=== PATIENT | female | born 2005 | race Caucasian/White ===

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

== ENCOUNTER → 2023-01-11 11:10 | Outpatient (CLI) | payer MEDICAID, SELFPAY ==
[2023-01-15 09:35] LABS: Neisseria gonorrhoeae, NAA Negative (Negative)
== END ==
PROVIDERS: PCP Internal Medicine; Visit Provider Obstetrics & Gynecology
DX: Z34.91 Encounter for supervision of normal pregnancy, unspecified, first trimester (principal); Z3A.08 8 weeks gestation of pregnancy; B95.2 Enterococcus as the cause of diseases classified elsewhere
CPT/HCPCS: 87086; 87491; 87591

== ENCOUNTER 2023-02-05 13:22 | Outpatient (CLI) | payer MEDICAID, SELFPAY ==
[2023-02-05 13:26] VITALS: BMI 20.3
--- NOTE | 2023-02-05 14:13 | PC.NURSE ---
02/05/23 1345 pt presents for blood to be drawn for labs as ordered per . Venipuncture performed using butterfly access needle to pt's lt ac x 1 stick. Lab staff Louisa at chair side to witness blood draw for type and screen. Blood drawn for labs, specimens sent to lab for analysis. Site secured with 2x2 gauze and coban once needle was withdrawn.
[2023-02-05 20:35] LABS: Basophils % 0.3 % (0.1-2.0); Eosinophils % 0.7 % (0.1-12.0); Hematocrit 36.8 % (37.0-47.0); Hemoglobin 12.6 g/dL (12.2-16.2); Lymphocytes # 1.4 K/mm3 (0.7-4.5); Lymphocytes % 28.8 % (10-50); Mean Corpuscular HGB Conc 34.3 g/dL (31.8-35.4); Mean Corpuscular Hemoglobin 30.7 pg (27.0-31.2); Mean Corpuscular Volume 89.5 fl (81-99); Mean Platelet Volume 8.4 fl (7.4-10.4); Monocytes # 0.2 K/mm3 (0.1-1.0); Monocytes % 3.9 % (1.7-9.3); Neutrophils # 3.2 K/mm3 (1.8-7.8); Neutrophils % 66.4 % (37.0-80.0); Platelet Count 172 K/mm3 (142-424); Red Blood Count 4.11 M/mm3 (4.20-5.40); Red Cell Distribution Width 12.8 % (11.5-17.5); White Blood Count 4.9 K/mm3 (4.5-13.0)
[2023-02-07 06:00] LABS: HIV Screen 4th Generation wRfx Non Reactive (Non Reactive)
[2023-02-07 10:14] LABS: Rapid Plasma Reagin Ab Titer Non Reactive titer (NonRea<1:1)
[2023-02-12 09:41] LABS: Hepatitis B Surface Antigen Negative
[2023-02-12 09:42] LABS: Hepatitis C Antibody Non Reactive; Rubella Antibodies, IgG 9.79
== END 2023-02-05 13:50 | disposition home or self-care (01) ==
LOC: LAB 13:22
PROVIDERS: PCP Internal Medicine; Visit Provider Obstetrics & Gynecology
DX: Z34.91 Encounter for supervision of normal pregnancy, unspecified, first trimester (principal); Z3A.11 11 weeks gestation of pregnancy
CPT/HCPCS: 36415; 85025; 86593; 86703; 86762; 86850; 87340; 87380; G0432

== ENCOUNTER 2023-04-05 10:12 | Outpatient (CLI) | payer MEDICAID, SELFPAY ==
--- NOTE | 2023-04-05 10:13 | US_ITS ---
PROCEDURE: US OB /MATERNAL DETAIL CLINICAL INDICATION: ob complete COMPARISON: No exams were available for comparison FINDINGS: Transabdominal sonographic images of the pelvis were obtained. From her established due date she is 20 weeks 1 day.. Single viable intrauterine gestation. Cephalic initially then breech position. Placenta: Anteriorplacenta grade 1. There is an average amount of fluid. The cervix appears satisfactory. Closed and measuring 3.38 cm in length. Complete survey performed and was unremarkable on the submitted images as in PACS. No discrete anomalies identified on survey imaging by technologist. Active fetus. Three-vessel cord with satisfactory umbilical cord insertion. 4- chamber heart noted. Situs, aortic arch, LVOT, RVOT, three-vessel view appear normal. Survey of brain & ventricles Unremarkable. Cerebellum, thalamus, choroid plexus, cisterna magna appear normal. Face and neck survey unremarkable. Profile, nasion, lips and nose appeared normal. Diaphragm and chest views unremarkable. Abdomen: Both kidneys noted and unremarkable. Stomach and bladder noted and satisfactory. Spine: Survey of the spine satisfactory with no anomalies identified nor imaged. Cervical, thoracic, lower spine appear normal. Both arms and legs noted. Amniotic Fluid: Adequate. Measurements: Average ultrasound age 20weeks 0 days. Estimated due date by ultrasound age 0608/23/2023. Estimated weight 328g BPD = 19weeks 5days HC = 19weeks 6days AC = 20weeks 2days FL = 20weeks 0 days Growth Percentile= 39 Heart Rate = 140bpm Cerebellum = 19weeks 5days Humerus = 19weeks 6days HC/AC is 1.15 FL/BPD is 0.71 FL/AC is 0.21 IMPRESSION: 1. Viable fetus initially in the cephalic presentation and turned breech during the scan. 2. The fluid is within normal limits. 3. Anatomy scan appears normal. 4. biometry is consistent with the dates. Dictated by: Elfego Bird MD 04/05/2023 11:44 Elfego Bird MD in OV 04/05/2023 11:44
== END 2023-04-05 23:59 ==
LOC: RAD 10:13
PROVIDERS: PCP Internal Medicine; Visit Provider Obstetrics & Gynecology
DX: Z34.92 Encounter for supervision of normal pregnancy, unspecified, second trimester (principal); Z3A.20 20 weeks gestation of pregnancy
CPT/HCPCS: 76811

== ENCOUNTER 2023-05-14 08:15 | Outpatient (CLI) | payer MEDICAID, SELFPAY ==
[2023-05-14 08:42] LABS: Basophils % 0.1 % (0.1-2.0); Eosinophils % 0.5 % (0.1-12.0); Hematocrit 36.1 % (37.0-47.0); Lymphocytes # 1.9 K/mm3 (0.7-4.5); Lymphocytes % 29.3 % (10-50); Mean Corpuscular HGB Conc 33.2 g/dL (31.8-35.4); Mean Corpuscular Hemoglobin 32.1 pg (27.0-31.2); Mean Corpuscular Volume 96.9 fl (81-99); Mean Platelet Volume 8.5 fl (7.4-10.4); Monocytes # 0.3 K/mm3 (0.1-1.0); Monocytes % 4.8 % (1.7-9.3); Neutrophils # 4.3 K/mm3 (1.8-7.8); Neutrophils % 65.4 % (37.0-80.0); Platelet Count 180 K/mm3 (142-424); Red Blood Count 3.73 M/mm3 (4.20-5.40); Red Cell Distribution Width 13.6 % (11.5-17.5); White Blood Count 6.6 K/mm3 (4.5-13.0)
[2023-05-14 08:45] LABS: Glucose,Fasting 82 mg/dl (74-100)
[2023-05-14 10:04] LABS: Glucose 1 Hour 83 mg/dL (74-100)
== END 2023-05-14 23:59 ==
LOC: LAB 08:16
PROVIDERS: PCP Internal Medicine; Visit Provider Obstetrics & Gynecology
DX: O26.892 Other specified pregnancy related conditions, second trimester (principal); Z3A.25 25 weeks gestation of pregnancy
CPT/HCPCS: 36415; 82951; 85025

== ENCOUNTER 2023-06-10 14:11 | Emergency (ER) | payer MEDICAID, SELFPAY ==
[2023-06-10 14:15] VITALS: BP 117/77; PULSE 84; RESP 20; TEMP 36.6; O2SAT 97; BMI 26.3
[2023-06-10 14:25] VITALS: BP 117/77; PULSE 84; RESP 20; TEMP 36.6; O2SAT 97
--- NOTE | 2023-06-10 14:25 | ED_ITS ---
Discharge Plan Disposition Patient Disposition: Home, Self-Care Condition: Good Prescriptions Prescriptions: New amoxicillin-pot clavulanate 875-125 mg Tablet 1 tab PO Q12H 7 Days Qty: 14 0RF No Action sertraline 50 mg tablet 50 mg PO DAILY Classic 28 mg iron- 800 mcg tablet 1 tab PO DAILY Referrals Follow up/Referrals: Shan Cuevas MD [Primary Care Provider] - See instructions Activity Restrictions/Add. Instructions Additional Instructions/Restrictions: Neti Pot may help to clear sinus congestion Take medication as prescribed Follow up with your Family Doctor if no improvement or any worsening of symptoms Discuss with your OB before taking any medication while Clinical Impressions Clinical Impression: Sinusitis Instructions Patient Instructions: DI for Sinusitis, Sinusitis Discharge ED Provider: Odalis Angel [facility] General Stated complaint: congestion, sore throat, cough Mode of Arrival: Ambulatory Source of Information: Patient Limitations: No Limitations Time Seen by Provider: 06/10/23 14:25 Description of Symptoms (Recalled from Triage Doc. by RN): PATIENT C/O COUGH, SORE THROAT, CONGESTION, AND HEADACHE THAT STARTED LAST WEEK AND HAS GOTTEN WORSE HEENT Symptoms (Recalled from RN notes): Yes Resp Symptoms (Recalled from RN notes): Yes Skin Symptoms (Recalled from RN notes): No MS Symptoms (Recalled from RN notes): No Functional Status (Recalled from RN notes): WNL History of Present Illness Provider Complaint: Patient states that she hasnt felt well for about a week States that she has been having cough, sinus pain and pressure with sinus headache States that it has continued to get worse and it feels like it is trying to move into her chest so she came in today to get checked States that she is 29wks OB Related Data Home Medications Medication Instructions Recorded Confirmed sertraline 50 mg tablet 50 mg PO DAILY 01/11/23 06/10/23 vits no.126-ferrous fum 1 tab PO DAILY 02/15/23 06/10/23 28 mg iron-folic acid 800 mcg tablet (Classic ) Previous Rx's Medication Instructions Recorded amoxicillin 875 mg-potassium 1 tab PO Q12H 7 days #14 tabs 06/10/23 clavulanate 125 mg tablet Allergies Allergy/AdvReac Type Severity Reaction Status Date / Time No Known Allergies Allergy Verified 05/29/23 10:39 Worker's Comp Is this a Worker's Comp case?: No [facility] Disclaimer: The information contained in this section may have been updated after the patient was seen, as this information can be updated by other users. 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 atrophy Genital HSV PTSD (post-traumatic stress disorder) Anxiety Depression Surgical History History of rhinoplasty Family History Other Asthma FHx: mental illness Heart attack Hyperlipidemia Hypertension Social History Smoking Status: Former smoker tobacco type: e-cigarettes alcohol intake: never substance use type: denies use current occupational status: student Travel in the last 8 weeks: None number of children: 0 ROS Obtained: Yes All systems reviewed & no additional complaints except as documented and Yes Systems reviewed as appropriate & no additional complaints except as documented Constitutional Constitutional: Reports system reviewed and no additional complaints, except as documented, Reports as per HPI and Reports headache(s) ENT Ears, Nose, Mouth, and Throat: Reports system reviewed and no additional complaints, except as documented, Reports as per HPI, Reports headache(s), Reports sinus pain, Reports sinus pressure and Reports sore throat Cardiovascular Cardiovascular: Reports system reviewed and no additional complaints, except as documented and Reports as per HPI Respiratory Respiratory: Reports system reviewed and no additional complaints, except as documented, Reports as per HPI and Reports cough Neurologic Neurologic: Reports headache(s) Physical Exam General General appearance: alert and in no apparent distress ENT ENT exam: Present mucous membranes moist Expanded ENT Exam Nose exam: Present sinus tenderness Throat exam: Present other (PND noted) Respiratory Respiratory exam: Present normal lung sounds bilaterally; Absent respiratory distress or wheezes Cardiovascular Cardiovascular exam: Present regular rate, normal rhythm and normal heart sounds Neurological Exam Neurological exam: Present alert, oriented X3 and normal gait Medical Decision Making Ozzy Inquiry Pt receiving controlled substance: No Ozzy was queried for this patient: No Vital Signs: 06/10/23 14:15 06/10/23 14:25 Temperature 97.9 F 97.9 F Temperature Source Oral Pulse Rate 84 Pulse Rate [Right Brachial] 84 Respiratory Rate 20 20 Blood Pressure 117/77 Blood Pressure [Right Arm] 117/77 Blood Pressure Mean [Right Arm] 90 Blood Pressure Source [Right Arm] Automatic Cuff Blood Pressure Position [Right Arm] Sitting 02 Sat by Pulse Oximetry 97 Oxygen Delivery Method Room Air Medical Decision Narrative: Medication discussed with Pharmacy about being safe for use in
== END 2023-06-10 14:37 | disposition home or self-care (01) ==
PROVIDERS: Emergency Provider Nurse Practitioner; PCP Internal Medicine
DX: O99.891 Other specified diseases and conditions complicating pregnancy (principal); J01.90 Acute sinusitis, unspecified; R51.9 Headache, unspecified; R05.9 Cough, unspecified; R09.81 Nasal congestion; Z87.891 Personal history of nicotine dependence; Z3A.29 29 weeks gestation of pregnancy
CPT/HCPCS: 99212; 99214; G0463

== ENCOUNTER 2023-07-30 18:00 | Outpatient (CLI) | payer MEDICAID, SELFPAY | END 2023-07-30 23:59 | disposition home or self-care (01) | LOC: LAB.DROPOF 07-31 09:46 | PROVIDERS: PCP Nurse Practitioner Obstetrics & Gynecology; Visit Provider Nurse Practitioner Obstetrics & Gynecology | DX: O26.893 Other specified pregnancy related conditions, third trimester (principal); Z3A.36 36 weeks gestation of pregnancy | CPT/HCPCS: 86403 ==

== ENCOUNTER 2023-08-05 13:53 | Outpatient (CLI) | payer MEDICAID, SELFPAY ==
--- NOTE | 2023-08-05 13:53 | US_ITS ---
PROCEDURE: US OB BIOPHYSICAL PROFILE CLINICAL INDICATION: sga COMPARISON: US US OB /MATERNAL DETAIL from 04/05/2023 FINDINGS: Transabdominal sonographic images of the uterus were obtained. From her established due date she is 37weeks 3days. The following parameters are obtained: Viable Fetus in the cephalic presentation with and anterior placenta grade 2. Average ultrasound age is 37weeks 5days Estimated weight 3,009g, 6 lb 10 oz Cervix measures 3.3 cm. Measurements: heart Rate = 129bpm BPD = 39weeks 1day, 95 percentile HC = 39weeks 1day, 67 percentile AC = 36weeks 1day, 25 percentile FL = 36weeks 1day, 20 percentile HC/AC is 1.06 FL/BPD is 0.74 FL/AC is 0.22 39 percentile Amniotic fluid index: 10.47cm, MVP 5.94 cm Qualitative AFV:2 Breathing movements: 2 Gross Body Movements: 2 Tone: 2 Biophysical profile score: 8 Doppler evaluation of the umbilical artery: SD ratio: 2.39-3.1 Resistive index: 0.62 No obvious anomalies evident.Kidneys, profile, nasion, bladder, stomach, four-chamber heart, three-vessel cord appear normal. IMPRESSION: 1. Viable fetus in the cephalic presentation with an anterior placenta grade 2. 2. The fluid is within normal limits with an amniotic fluid index of 10.47 cm, MVP 5.94 cm. 3. Biophysical profile is 8/8 with good breathing movement and movement seen. 4. The SD ratio is normal at 2.40-3.1. 5. There has been good interval growth with the fetus currently 39th percentile. 6. Limited anatomical scan appears normal. Dictated by: Elfego Bird MD 08/05/2023 16:59 Elfego Bird MD in OV 08/05/2023 16:59
== END 2023-08-05 23:59 | disposition home or self-care (01) ==
LOC: RAD 13:53
PROVIDERS: PCP Internal Medicine; Visit Provider Nurse Practitioner Obstetrics & Gynecology
DX: O36.5930 Maternal care for other known or suspected poor fetal growth, third trimester, not applicable or unspecified (principal); Z3A.37 37 weeks gestation of pregnancy
CPT/HCPCS: 76816; 76819; 76820

== ENCOUNTER 2023-08-25 13:02 | Inpatient (IN) | payer MEDICAID, SELFPAY ==
[2023-08-25 13:06] VITALS: BMI 28.5
[2023-08-25 13:39] LABS: Microscopic, Urine URINE MICROSCOPIC (MICROSCOPIC)
[2023-08-25 13:48] LABS: Appearance,Urine CLEAR (Clear); Bilirubin,Urine Negative (Negative); Blood, Urine Negative (Negative); Color,Urine YELLOW (Yellow); Glucose,Urine (UA) Negative (Negative); Ketones,Urine Negative (Negative); Leukocyte Esterase,Urine TRACE (Negative); Nitrate,Urine Negative (Negative); Protein,Urine Negative (Negative); Specific Gravity, Urine <= 1.005 (1.005-1.030); Urobilinogen,Urine 0.2 EU/dl (0.2)
[2023-08-25 13:49] VITALS: BP 134/79; PULSE 117; RESP 22; TEMP 37.3; O2SAT 99; BMI 28.5
[2023-08-25 13:53] LABS: Basophils % 0.3 % (0.1-2.0); Eosinophils % 0.3 % (0.1-12.0); Hematocrit 35.8 % (37.0-47.0); Hemoglobin 11.9 g/dL (12.2-16.2); Lymphocytes # 2.2 K/mm3 (0.7-4.5); Lymphocytes % 21.7 % (10-50); Mean Corpuscular HGB Conc 33.3 g/dL (31.8-35.4); Mean Corpuscular Hemoglobin 29.5 pg (27.0-31.2); Mean Corpuscular Volume 88.6 fl (81-99); Mean Platelet Volume 9.7 fl (7.4-10.4); Monocytes # 0.4 K/mm3 (0.1-1.0); Monocytes % 3.7 % (1.7-9.3); Neutrophils # 7.3 K/mm3 (1.8-7.8); Platelet Count 191 K/mm3 (142-424); Red Blood Count 4.05 M/mm3 (4.20-5.40); Red Cell Distribution Width 14.3 % (11.5-17.5); White Blood Count 9.9 K/mm3 (4.5-13.0)
[2023-08-25 14:00] LABS: Barbiturates Screen,Urine Negative ng/ml (<200)
[2023-08-25 14:01] LABS: Bacteria,Urine 1+ /lpf; Benzodiazepines Screen,Urine Negative ng/ml (<200); RBC,Urine Occasional #/hpf (0-3)
[2023-08-25 14:02] LABS: Amphetamine/Metha Screen,Urine Negative ng/ml (<1000); Methadone Screen,Urine Negative ng/ml (<300)
[2023-08-25 14:03] LABS: Cannabinoid Screen,Urine Negative ng/ml (<50); Cocaine Screen,Urine Negative ng/ml (<300)
[2023-08-25 14:04] LABS: Opiate Screen,Urine Negative ng/ml (<300)
[2023-08-25 14:05] LABS: Phencyclidine Screen,Urine Negative ng/ml (<25)
[2023-08-25] MEDS: miSOPROStol 100MCG TABLET 50 MCG PO ×2 (14:07→20:09)
[2023-08-26] MEDS: miSOPROStol 100MCG TABLET 50 MCG PO (02:10)
[2023-08-26 07:52] VITALS: BP 131/85; PULSE 103; RESP 18; TEMP 37.4; O2SAT 100
--- NOTE | 2023-08-26 08:28 | EXP.OB.APHP ---
OB - H&P: HPI Antepartum History of Present Illness Chief complaint: Scheduled induction of labor, full term History of present illness: Ms. [place]ia Newsome is a 17 yo at 40w3d who presents for scheduled induction of labor, full term. She has had good care. GBS negative. History of genital HSV. She has been taking Valtrex for prophylaxis. Baby is active. History of Present Criteria for establishing EDC:: LMP confirmed by 1st trimester US care: good care Ultrasounds: normal mid trimester US Labs Blood type: A (+) positive Rubella: immune RPR/VDRL: nonreactive GBS status: negative HBsAG: negative PFSH PFSH Disclaimer: The information contained in this section may have been updated after the patient was seen, as this information can be updated by other users. Medical History (Updated 08/26/23 @ 08:34 by Ainsley Guzmán DO) Post term over 40 weeks Depression affecting Screening for genetic disease carrier status Carrier of spinal muscular atrophy Genital HSV PTSD (post-traumatic stress disorder) Anxiety Depression Surgical History History of rhinoplasty Family History Other Asthma FHx: mental illness Heart attack Hyperlipidemia Hypertension Social History (Updated 08/25/23 @ 13:59 by Lolis Warren RN) Smoking Status: Former smoker tobacco type: e-cigarettes alcohol intake: never substance use type: denies use current occupational status: employed Travel in the last 8 weeks: None number of children: 0 do you feel safe at home: Yes victim of physical abuse: No victim of emotional abuse: No victim of sexual abuse: No Review of Systems Review of Systems Review of systems:: pertinent systems reviewed and negative unless documented below Meds Home Medications and Allergies Home Medications Medication Instructions Recorded Confirmed Type sertraline 50 mg tablet 50 mg PO DAILY 01/11/23 08/25/23 History vits no.126-ferrous fum 1 tab PO DAILY 02/15/23 08/25/23 History 28 mg iron-folic acid 800 mcg tablet (Classic ) valacyclovir 500 mg tablet 500 mg PO BID #60 tabs 07/23/23 08/25/23 Rx (Valtrex) New Prescriptions to Start Prescriptions: Allergies Allergy/AdvReac Type Severity Reaction Status Date / Time No Known Allergies Allergy Verified 08/22/23 14:36 OB - H&P: Exam Physical Exam Vital signs: Temp Pulse Resp BP Pulse Ox O2 Del Method 99.1 F 117 H 22 134/79 99 Room Air 08/25/23 13:49 08/25/23 13:49 08/25/23 13:49 08/25/23 13:49 08/25/23 13:49 08/25/23 13:49 Constitutional no acute distress and cooperative Routine HEENT Exam Head: Present normocephalic and atraumatic Eye: Absent conjunctivae pink ENT: Present mucous membranes moist Routine Neck Exam Present full ROM Routine Respiratory Exam Present CTA bilaterally and normal respiratory effort Routine Cardiovascular Exam Present RRR Routine Abdominal Exam Present soft (Gravid); Absent tenderness Routine Rectal Exam Patient deferred: visual exam Routine Exam External: Present normal urethra appearance; Absent erythema, tenderness, lesions, ecchymosis or lacerations Routine Extremities Exam Present full ROM; Absent edema or calf tenderness Routine Neurological Exam Present alert, moving all extremities and normal speech Routine Psychiatric Exam Present normal affect and cooperative Detailed Labor and Delivery Exam Dilation (cm): 1 Effacement (%): 80 Cervix position: mid station: -1 Consistency: soft Membranes: artificially ruptured (amniotomy performed with amnihook at 0750, clear fluid) Amniotic fluid: clear Baseline heart rate: 120 monitor accelerations: Present monitor decelerations: None intermodal customer service variability: Moderate (11-25) OB - Results Labs Labs: Short CBC 08/25/23 Range/Units 13:35 WBC 9.9 (4.5-13.0) K/mm3 Hgb 11.9 L (12.2-16.2) g/dL Hct 35.8 L (37.0-47.0) % Plt Count 191 (142-424) K/mm3 Urine 08/25/23 Range/Units 13:10 Urine Color Yellow (Yellow) Urine Appearance Clear (Clear) Urine pH 7.0 (5.0-8.5) Ur Specific [place] <= 1.005 (1.005-1.030) Urine Protein Negative (Negative) Urine Glucose (UA) Negative (Negative) OB - A/P Antepartum (1) Post term over 40 weeks: Status: Acute (2) Depression affecting : Status: Acute (3) Carrier of spinal muscular atrophy: Status: Acute (4) Screening for genetic disease carrier status: Problem details: + 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 Induction with Cytotec followed by Pitocin GBS negative Close monitoring Anticipate
[2023-08-26] MEDS: LACTATED RINGERS 1000ML 1,000 ML 250 ML IV (08:29)
[2023-08-26] MEDS: OXYTOCIN/RINGERS LACTATE 30 UNITS/500 ML BAG IV (08:29)
[2023-08-26] MEDS: DEXTROSE 5%-LACTATED RINGERS 1,000 ML 125 ML IV (08:29)
[2023-08-26 09:07] VITALS: TEMP 37.1
--- NOTE | 2023-08-26 09:17 | P.PNANES_ITS ---
[facility] Disclaimer: The information contained in this section may have been updated after the patient was seen, as this information can be updated by other users. Medical History (Updated 08/26/23 @ 08:34 by Ainsley Guzmán DO) Post term over 40 weeks Depression affecting Screening for genetic disease carrier status Carrier of spinal muscular atrophy Genital HSV PTSD (post-traumatic stress disorder) Anxiety Depression Surgical History History of rhinoplasty Family History Other Asthma FHx: mental illness Heart attack Hyperlipidemia Hypertension Social History (Updated 08/25/23 @ 13:59 by Lolis Warren RN) Smoking Status: Former smoker alcohol intake: never substance use type: denies use current occupational status: employed Travel in the last 8 weeks: None number of children: 0 do you feel safe at home: Yes victim of physical abuse: No victim of emotional abuse: No victim of sexual abuse: No [facility] Anesthesia Checklist Patient Identification Patient Identification: Arm Band Structural Data Admitted From: Home Planned Operative Procedure/s: Labor Epidural Consent for Planned Operative Procedure(s) Verified: Yes Verified Documents: Surgical Consent and History and Physical NPO Status Verified Time NPO: 00:00 Additional verifications Anesthesia Reactions: No Airway Assessment Mallampati Score:: Class II C-Spine Mobility Assessed: Yes TMJ Mobility Assessed: Yes Neurological Assessment Level of Consciousness: Awake, Alert and Appropriate Anesthesia Plan Anesthesia Risk discussed: Yes Anesthesia Plan: Verified ASA Class: II Anesthesia Type: Epidural
[2023-08-26 11:00] VITALS: TEMP 37
[2023-08-26] MEDS: OXYTOCIN/RINGERS LACTATE 30 UNITS/500 ML BAG 40 UNITS IV (15:17)
--- NOTE | 2023-08-26 15:45 | EXP.DN ---
Delivery Note Delivery Date:: 08/26/23 Delivery Time:: 15:14 Anesthesia Type: Epidural Was labor medically induced?: No Induction method: per misoprostol protocol Gestational age (weeks): 40 delivered prior to 39 weeks?: No Gender: Female at 1 minute: 7 at 5 minutes: 9 Delivery Procedure:: Mom complete with epidural. Pushed for approximately 2 hours 16 minutes. Kiwi vacuum was applied at +2 station for FHTs in the 80's and maternal exhaustion, poor expulsive effort. Pulled through 2 contractions. One pop off. Mediolateral episiotomy performed. Head delivered spontaneously over mediolateral episiotomy in EMANI position. No nuchal cord. Anterior shoulder delivered with gentle downward pressure. Posterior shoulder and remainder of body delivered spontaneously. Baby placed on maternal abdomen, mouth and nares bulb suctioned, warmed/dried and stimulated. Delayed cord clamping was performed for 60 seconds. Cord was clamped and cut by father of baby. Cord pH was drawn. Cord blood was obtained. Placenta delivered spontaneously and intact. Mediolateral episiotom repaired with 3-0 [employer]. Hemostasis noted. Mom and baby were skin to skin and doing well after delivery. Live female baby (baby's name is Carlee) APGARs 7 (1 min), 9 (5 min) EBL 300 mL Placental Delivery Description: Spontaneous
[2023-08-26] MEDS: WITCH HAZEL 40 PADS/BOX 1 EACH TP (17:49)
[2023-08-26] MEDS: BENZOCAINE-MENTHOL SPRAY 56GM CAN TP (17:50)
[2023-08-26 21:39] VITALS: BP 120/74; PULSE 115; RESP 18; TEMP 37.4; O2SAT 98
[2023-08-27 05:27] VITALS: BP 132/78; PULSE 103; RESP 18; TEMP 37.2; O2SAT 98
[2023-08-27 06:57] LABS: Basophils % 0.1 % (0.1-2.0); Eosinophils % 0.1 % (0.1-12.0); Hematocrit 32.4 % (37.0-47.0); Hemoglobin 10.7 g/dL (12.2-16.2); Lymphocytes # 1.8 K/mm3 (0.7-4.5); Lymphocytes % 18.9 % (10-50); Mean Corpuscular HGB Conc 33.1 g/dL (31.8-35.4); Mean Corpuscular Hemoglobin 29.7 pg (27.0-31.2); Mean Corpuscular Volume 89.8 fl (81-99); Mean Platelet Volume 9.5 fl (7.4-10.4); Monocytes # 0.5 K/mm3 (0.1-1.0); Monocytes % 4.8 % (1.7-9.3); Neutrophils # 7.2 K/mm3 (1.8-7.8); Platelet Count 163 K/mm3 (142-424); Red Blood Count 3.61 M/mm3 (4.20-5.40); Red Cell Distribution Width 14.4 % (11.5-17.5); White Blood Count 9.5 K/mm3 (4.5-13.0)
[2023-08-27 09:00] VITALS: BP 130/76; PULSE 101; RESP 18; TEMP 36.9; O2SAT 98
--- NOTE | 2023-08-27 09:08 | P.PN_ITS ---
Subjective *Date: 08/27/23 *Time: 09:08 Interval history: PPD # 1 s/p VAVD Feeling well. Pain controlled. Breast feeding. Lochia is appropriate. Voiding without difficulty and passing flatus. Tolerating regular diet. Denies fever/chills, chest pain and shortness of breath. No headaches, vision changes, lightheadedness/dizziness. No lower extremity swelling. Ambulating well ad kobi. Medical Exam Vital signs and Labs for Last 24 Hours: Vital Signs Temp Pulse Resp BP Pulse Ox O2 Del Method 08/27/23 05:27 98.9 F 103 H 18 132/78 98 Room Air 08/26/23 21:39 99.4 F 115 H 18 120/74 98 Room Air 08/26/23 11:00 98.6 F Laboratory Results - last 24 hr 08/27/23 06:36: WBC 9.5, RBC 3.61 L, Hgb 10.7 L, Hct 32.4 L, MCV 89.8, MCH 29.7, MCHC 33.1, RDW 14.4, Plt Count 163, MPV 9.5, Neut % (Auto) 76.0, Lymph % (Auto) 18.9, [place] % (Auto) 4.8, Eos % (Auto) 0.1, Baso % (Auto) 0.1, Neut # (Auto) 7.2, Lymph # (Auto) 1.8, [place] # (Auto) 0.5, Eos # (Auto) 0.0, Baso # (Auto) 0.0 I & O for Labs for Last 24 Hours: Intake & Output 08/24/23 08/25/23 08/26/23 08/27/23 23:59 23:59 23:59 23:59 Weight 181 lb 15.865 oz Head: Present atraumatic and normocephalic ENT: Present mucous membranes moist Neck: Present normal inspection and full ROM Respiratory: Present CTA bilaterally and normal respiratory effort Cardiac: Present Reg Rate and Rhythm GI: Present soft; Absent tenderness Comments:: Uterine fundus firm and below umbilicus Rectal (female): Present deferred (female): Present deferred Extremities: Present full ROM; Absent edema or calf tenderness Neuro: Present alert, awake and moves all extremities Assessment and Plan *Assessment and plan (1) Status post vacuum-assisted vaginal delivery: Status: Acute Category: Medical Code(s): Z87.59 - Personal history of other complications of , childbirth and the puerperium (2) Post term over 40 weeks: Status: Acute Category: Medical Code(s): O48.0 - Post-term (3) Depression affecting : Status: Acute Category: Medical Code(s): O99.340 - Other mental disorders complicating , unspecified trimester; F32.A - Depression, unspecified (4) Screening for genetic disease carrier status: Problem Comment: + 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 Status: Acute Category: Medical Code(s): Z13.71 - Encounter for nonprocreative screening for genetic disease carrier status (5) Carrier of spinal muscular atrophy: Status: Acute Category: Medical Code(s): Z14.8 - Genetic carrier of other disease (6) Genital HSV: Status: Acute Qualifiers: Herpes simplex infection site: unspecified Qualified Code(s): A60.00 - Herpesviral infection of urogenital system, unspecified Category: Medical Code(s): A60.00 - Herpesviral infection of urogenital system, unspecified (7) Acute blood loss anemia: Status: Acute Category: Medical Code(s): D62 - Acute posthemorrhagic anemia Plan Continue routine care Encouraged increased ambulation AM Hgb 10.7 (11.9) Plan d/c home PPD # 2
[2023-08-27 16:50] VITALS: BP 121/70; PULSE 95; RESP 18; TEMP 36.9; O2SAT 98
[2023-08-27] MEDS: ACETAMINOPHEN 500MG TAB 1000 MG PO (16:55)
[2023-08-27] MEDS: SENNA 8.6MG TABLET 8.59999999999999964 MG PO (16:55)
[2023-08-28] MEDS: SERTRALINE 50MG TABLET 50 MG PO (00:04)
--- NOTE | 2023-08-28 09:09 | P.DS_ITS ---
General Admission date:: 08/25/23 Discharge date: 08/28/23 HPI HPI HPI: PPD # 2 s/p VAVD Feeling well. Breast and formula feeding. Lochia is light. Voiding without difficulty and passing flatus. Tolerating regular diet. Denies fever/chills, chest pain and shortness of breath. No headaches, vision changes, lightheadedness/dizziness. No lower extremity swelling. Ambulating well ad kobi. Hospital Course Hospital Course Hospital Course: Ms. [place] Newsome is a 17 yo at 40w3d who presents for scheduled induction of labor, full term. She has had good care. GBS negative. History of genital HSV. She has been taking Valtrex for prophylaxis. Baby is active. She underwent induction of labor with Cytotec followed by Pitocin. She had a vacuum assisted vaginal delivery on 08/26/23 at 1514. She delivered a live female baby, Federicah, weighing 7 lb 8 oz, APGARs 7 (1 min), 9 (5 min). EBL 300 mL. She did well . Pain controlled. Formula and breast feeding. Light lochia. Voiding without difficulty and passing flatus. Tolerating regular diet. Denies fever/chills, chest pain and shortness of breath. No headaches, dizziness/lightheadedness or vision changes. Vital signs stable, afebrile. Heart regular rate and rhythm. Lungs clear to auscultation. Abdomen soft, nontender. No lower extremity swelling. Ambulating well ad kobi. Normal hospital course. She was discharged to home on POD # 2 with instructions to follow-up in the office in 2 weeks or sooner if needed. Exam Data for Last 24 hours Vital signs and Labs for Last 24 Hours: Temp Pulse Resp BP Pulse Ox O2 Del Method 98.5 F 95 H 18 121/70 98 Room Air 08/27/23 16:50 08/27/23 16:50 08/27/23 16:50 08/27/23 16:50 08/27/23 16:50 08/27/23 16:50 I & O for Last 24 hours: Intake & Output 08/25/23 08/26/23 08/27/23 08/28/23 23:59 23:59 23:59 23:59 Weight 181 lb 15.865 oz Constitutional Constitutional: no acute distress and cooperative *Routine HEENT Exam Head: Present normocephalic and atraumatic Eye: Absent conjunctivae pink ENT: Present mucous membranes moist *Routine Neck Exam Neck: Present full ROM *Routine Respiratory Exam Respiratory: Present CTA bilaterally and normal respiratory effort *Routine Cardiovascular Exam Cardiovascular: Present RRR *Routine Abdominal Exam Abdominal: Present soft; Absent tenderness or distended Comments: Uterine fundus firm and below umbilicus *Routine Rectal Exam Patient deferred: visual exam *Routine Exam Patient deferred: external exam *Routine Extremities Exam Extremities: Present full ROM; Absent edema or calf tenderness *Routine Neurological Exam Neurological: Present alert, moving all extremities and normal speech Routine Psychiatric Exam Psychiatric: Present normal affect and cooperative DS: Diagnosis Discharge Diagnosis (1) Status post vacuum-assisted vaginal delivery: Status: Acute Code(s): Z87.59 - Personal history of other complications of , childbirth and the puerperium (2) Post term over 40 weeks: Status: Acute Code(s): O48.0 - Post-term (3) Depression affecting : Status: Acute Code(s): O99.340 - Other mental disorders complicating , unspecified trimester; F32.A - Depression, unspecified (4) Screening for genetic disease carrier status: Status: Acute Code(s): Z13.71 - Encounter for nonprocreative screening for genetic disease carrier status Problem details: + 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 (5) Carrier of spinal muscular atrophy: Status: Acute Code(s): Z14.8 - Genetic carrier of other disease (6) Genital HSV: Status: Acute Code(s): A60.00 - Herpesviral infection of urogenital system, unspecified Qualifiers: Herpes simplex infection site: unspecified Qualified Code(s): A60.00 - Herpesviral infection of urogenital system, unspecified (7) Acute blood loss anemia: Status: Acute Code(s): D62 - Acute posthemorrhagic anemia Meds Home Medications and Allergies Home Medications Medication Instructions Recorded Confirmed Type sertraline 50 mg tablet 50 mg PO DAILY 01/11/23 08/25/23 History vits no.126-ferrous fum 1 tab PO DAILY 02/15/23 08/25/23 History 28 mg iron-folic acid 800 mcg tablet (Classic ) New Prescriptions to Start Prescriptions: Allergies Allergy/AdvReac Type Severity Reaction Status Date / Time No Known Allergies Allergy Verified 08/22/23 14:36 Discharge Plan Disposition Patient Disposition: Home, Self-Care Condition: Good Discharge Order Discharge Orders: Discharge Order (Routine); Ordered 08/28/23 Ordered By: Ainsley Guzmán Follow up Plan Follow up with: Ainsley Guzmán DO [Staff Physician] - 09/09/23 1:30 pm Prescriptions/Medication Reconciliation: Continued sertraline 50 mg tablet 50 mg PO DAILY Classic 28 mg iron- 800 mcg tablet 1 tab PO DAILY Discontinued valacyclovir [Valtrex] 500 mg tablet 500 mg PO BID Qty: 60 1RF Problem Reconciliation Problems Reviewed?: Yes Patient Discharge Instructions ACTIVITY: Limited activity DIET: regular diet Additional Instructions: Discharge: 1. Take 800 mg Ibuprofen every 8 hours as needed for pain. You can also take 500-1000 mg of Tylenol in between doses, every 6-8 hours. 2. Nothing in the vagina for 6 weeks - no intercourse, douching or tampons. No tub baths/hot tubs or swimming pools 3. Reasons to return to L&D or call On-Call doctor - fever (greater than 100.4) - heavy vaginal bleeding (soaking through 1 pad in less than 2 hours) - vaginal discharge (malodorous and/or purulent) - severe headaches not resolved by medication or rest and leg tenderness/edema 4. depression/blues - Normal to feel anxious/overwhelmed for first 2 weeks - Talk to your doctor if: severe anxiety, trouble bonding with baby, withdrawing from other family members, thoughts of harming yourself or others Ainsley Guzmán DO [facility] [phone] Patient Instructions: Depression, Hemorrhage, DI for Labor and Delivery, Vaginal , DI for Pre-eclampsia, [facility] Post Discharge Instructions Providers Primary Care Provider: Shan Cuevas Admdesire Provider: Fadumo Blandon Attending Provider: Fadumo Blandon
[2023-08-28 09:41] VITALS: BP 124/71; PULSE 101; RESP 18; O2SAT 98
== END 2023-08-28 12:15 | disposition home or self-care (01) | DRG 807 ==
PROVIDERS: Obstetrics & Gynecology; Admitting Provider Obstetrics & Gynecology; PCP Internal Medicine; Visit Provider Obstetrics & Gynecology
DX: O98.52 Other viral diseases complicating childbirth (principal); Z37.0 Single live birth; B00.9 Herpesviral infection, unspecified; Z3A.40 40 weeks gestation of pregnancy; Z87.891 Personal history of nicotine dependence; O99.344 Other mental disorders complicating childbirth; F32.A Depression, unspecified
CPT/HCPCS: 59409; 36415; 59025; 80307; 81001; 85025; 86850; 94761; C1758; G0283; J3010; J7120

== ENCOUNTER 2023-11-06 09:53 | Emergency (ER) | payer BC, MEDICAID, SELFPAY ==
[2023-11-06 10:05] VITALS: BP 114/69; PULSE 88; RESP 20; TEMP 36.7; O2SAT 97; BMI 23.3
[2023-11-06 10:21] LABS: UTC Strep Screen (Rapid) Positive (Negative)
--- NOTE | 2023-11-06 10:22 | EXP.UTC ---
Discharge Plan Disposition Patient Disposition: Home, Self-Care Condition: Good Prescriptions Prescriptions: New amoxicillin 500 mg capsule 500 mg PO BID 10 Days Qty: 20 0RF No Action Classic 28 mg iron- 800 mcg tablet 1 tab PO DAILY sertraline 50 mg tablet 50 mg PO DAILY Qty: 90 1RF Referrals Follow up/Referrals: Shan Cuevas MD [Primary Care Provider] - See instructions Activity Restrictions/Add. Instructions Additional Instructions/Restrictions: *Monitor Temp, Over the counter Motrin or Tylenol as directed/as needed Tylenol every 4 hours and Motrin every 6 hours (as long as your family doctor has told you that you can take it) for fever or pain. and straight to ER if unable to lower temp less than 101.0 after medication given *Warm salt water gargles may help to soothe the throat *Throat Lozenges? *Warm fluids like tea with honey may help to soothe the throat? *Sleep elevated *Humidifier/Vaporizer *If you did not take Penicillin shot or was unable to, start taking antibiotic immediately and make sure that you take it for the FULL length of time although you should start to feel better in 24-48 hours *change toothbrush and toothpaste 24-48 hours after starting to take antibiotics so you do not reinfect yourself Monitor Temp. Tylenol and/or Ibuprofen as needed. ER if fever is no less than 101 despite alternating Tylenol and Ibuprofen * Encourage fluids, water, Gatorade, powerade, pedialyte if /toddler/or child *Cold fluids, popsicles and ice cream may feel good on his throat Follow up IMMEDIATELY for new or worsening symptoms or no Noticeable improvement over the next 48-72 hours. 911 for difficulty breathing or swallowing Clinical Impressions Clinical Impression: Strep throat Instructions Patient Instructions: DI for Strep Throat, Strep Throat Print Language Print Language: Samoan Discharge ED Provider: Odalis Angel [facility] [place] HPI General Stated complaint: sore throat, cough, runny nose, headache Mode of Arrival: Ambulatory Source of Information: Patient Limitations: No Limitations Time Seen by Provider: 11/06/23 10:23 Description of Symptoms (Recalled from Triage Doc. by RN): PATIENT C/O SORE THROAT, HEADACHE, RUNNY NOSE, AND SNEEZING SINCE YESTERDAY HEENT Symptoms (Recalled from RN notes): Yes Resp Symptoms (Recalled from RN notes): No Skin Symptoms (Recalled from RN notes): No MS Symptoms (Recalled from RN notes): No Functional Status (Recalled from RN notes): WNL History of Present Illness Provider Complaint: Patient states that she has been having sore throat, headache, and runny nose since yesterday States that she works at a daycare and strep throat has been going around and she thinks she may have it now Related Data Home Medications ?Medication ?Instructions ?Recorded ?Confirmed vits no.126-ferrous fum 1 tab PO DAILY 02/15/23 11/04/23 28 mg iron-folic acid 800 mcg tablet (Classic ) Previous Rx's ?Medication ?Instructions ?Recorded sertraline 50 mg tablet 50 mg PO DAILY #90 tabs 11/01/23 amoxicillin 500 mg capsule 500 mg PO BID 10 days #20 caps 11/06/23 Allergies Allergy/AdvReac Type Severity Reaction Status Date / Time No Known Allergies Allergy Verified 11/04/23 14:12 Worker's Comp Is this a Worker's Comp case?: No [facility] Disclaimer: The information contained in this section may have been updated after the patient was seen, as this information can be updated by other users. Medical History (Updated 11/06/23 @ 10:27 by Odalis Angel APRN) Chlamydia infection Anogenital HSV infection Acute blood loss anemia Depression affecting Carrier of spinal muscular atrophy Genital HSV PTSD (post-traumatic stress disorder) Anxiety Depression Surgical History History of rhinoplasty Family History Other Asthma FHx: mental illness Heart attack Hyperlipidemia Hypertension Social History Smoking Status: Former smoker alcohol intake: never substance use type: denies use current occupational status: employed Travel in the last 8 weeks: None number of children: 0 do you feel safe at home: Yes victim of physical abuse: No victim of emotional abuse: No victim of sexual abuse: No ROS Obtained: Yes All systems reviewed & no additional complaints except as documented and Yes Systems reviewed as appropriate & no additional complaints except as documented Constitutional Constitutional: Reports system reviewed and no additional complaints, except as documented, Reports as per HPI and Reports headache(s) ENT Ears, Nose, Mouth, and Throat: Reports system reviewed and no additional complaints, except as documented, Reports as per HPI, Reports headache(s), Reports nasal congestion, Reports nasal discharge and Reports sore throat Cardiovascular Cardiovascular: Reports system reviewed and no additional complaints, except as documented and Reports as per HPI Respiratory Respiratory: Reports system reviewed and no additional complaints, except as documented and Reports as per HPI Gastrointestinal Gastrointestingal: Reports system reviewed and no additional complaints, except as documented and as per HPI Neurologic Neurologic: Reports headache(s) Physical Exam General General appearance: alert and in no apparent distress ENT ENT exam: Present mucous membranes moist Expanded ENT Exam Nose exam: Absent sinus tenderness Throat exam: Present tonsillar erythema and tonsillar exudate Respiratory Respiratory exam: Present normal lung sounds bilaterally; Absent respiratory distress or wheezes Cardiovascular Cardiovascular exam: Present regular rate, normal rhythm and normal heart sounds Abdominal Exam Abdominal exam: Present soft and normal bowel sounds; Absent distention or tenderness Neurological Exam Neurological exam: Present alert, oriented X3 and normal gait Medical Decision Making Ozzy Inquiry Pt receiving controlled substance: No Ozzy was queried for this patient: No Vital Signs: 11/06/23 10:05 Temperature 98.1 F Temperature Source Oral Pulse Rate [Left Brachial] 88 Respiratory Rate 20 Blood Pressure [Left Arm] 114/69 Blood Pressure Mean [Left Arm] 84 Blood Pressure Source [Left Arm] Automatic Cuff Blood Pressure Position [Left Arm] Sitting 02 Sat by Pulse Oximetry 97 Oxygen Delivery Method Room Air Lab Data Lab results reviewed: Yes I reviewed the patient's lab results. Lab Results 11/06/23 10:10: Strep Scn [facility] Positive A
[2023-11-06 10:32] VITALS: BP 114/69; PULSE 88; RESP 20; TEMP 36.7; O2SAT 97
== END 2023-11-06 10:35 | disposition home or self-care (01) ==
PROVIDERS: Emergency Provider Nurse Practitioner; PCP Internal Medicine
DX: J02.0 Streptococcal pharyngitis (principal); R51.9 Headache, unspecified; R09.81 Nasal congestion
CPT/HCPCS: 87880; 99212; 99214; G0463

== ENCOUNTER 2023-12-03 13:23 | Outpatient (CLI) | payer BC, MEDICAID, SELFPAY | END 2023-12-03 23:59 | disposition home or self-care (01) | LOC: LAB.DROPOF 12-05 13:24 | PROVIDERS: PCP Internal Medicine; Visit Provider Internal Medicine | DX: J03.90 Acute tonsillitis, unspecified (principal) | CPT/HCPCS: 87070 ==

== ENCOUNTER 2024-03-06 14:09 | Outpatient (CLI) | payer MEDICAID, SELFPAY ==
[2024-03-06 15:12] LABS: 25-OH Vitamin D, Total 34.2 ng/mL (30-100)
== END 2024-03-06 23:59 | disposition home or self-care (01) ==
LOC: LAB 14:10
PROVIDERS: PCP Internal Medicine; Visit Provider Obstetrics & Gynecology
DX: F32.A Depression, unspecified (principal); F41.9 Anxiety disorder, unspecified; Z68.23 Body mass index [BMI] 23.0-23.9, adult
CPT/HCPCS: 36415; 82306

== ENCOUNTER 2024-04-25 18:06 | Emergency (ER) | payer BC, MEDICAID, SELFPAY ==
[2024-04-25 18:06] VITALS: BP 128/89; PULSE 112; RESP 20; TEMP 37; O2SAT 100; BMI 17.7
--- NOTE | 2024-04-25 18:12 | ECG_ITS ---
APPROVED REPORT Exam: Resting ECG HR:119 bpm ECG Measurements Heart Rate 119 AXES PA 149 P 65 QRSd 97 QRS 78 QT 340 T 3 QTc 410 Conclusion SINUS TACHYCARDIA POSSIBLE LEFT ATRIAL ENLARGEMENT [-0.1mV P-WAVE IN V1/V2] POSSIBLE RIGHT VENTRICULAR CONDUCTION DELAY [RSR (QR) IN V1/V2] NONSPECIFIC ST & T-WAVE ABNORMALITY ABNORMAL RHYTHM ECG UNCONFIRMED REPORT Electronically signed by : Tien Buckley, 04/26/2024 00:37:39
--- NOTE | 2024-04-25 18:12 | ED_ITS ---
Discharge Plan Disposition Patient Disposition: Home, Self-Care Condition: Good Prescriptions Prescriptions: New hydroxyzine HCl 50 mg tablet 50 mg PO Q8H PRN (Reason: anxiety) Qty: 30 0RF No Action ParaGard T 380A 380 square mm intrauterine device 1 device intrauterine ONCE Qty: 1 0RF fluoxetine [Prozac] 20 mg capsule 20 mg PO DAILY Qty: 30 1RF amoxicillin 500 mg capsule 1,000 mg PO BID Qty: 40 0RF Referrals Follow up/Referrals: Shan Cuevas MD [Primary Care Provider] - See instructions Clinical Impressions Clinical Impression: Anxiety Print Language Print Language: Central African Discharge ED Provider: Tien Buckley General Adult HPI General Chief complaint: Chest Pain Stated complaint: cp Time Seen by Provider: 04/25/24 18:08 History of Present Illness HPI narrative: Patient is a 18-year-old female with a history of anxiety disorder and panic attacks, depression. She presents today due to the feeling that something is seriously wrong . She reports that she has had chest tightness and palpitations and intermittent shortness of breath not necessarily associated with exertion for over 2 months. She reports it is not particularly worsened today, she was just overly concerned so she wanted to come to the emergency department to get checked out. She reports some lightheadedness as well, but denies any syncope. She reports some nonbloody diarrhea and some gastric reflux, but denies any overt abdominal pain, dysuria, hematuria, flank pain. No lower extremity edema. No history of blood clots. Does not take any OCPs or estrogen supplementation. Related Data Previous Rx's ?Medication ?Instructions ?Recorded fluoxetine 20 mg capsule (Prozac) 20 mg PO DAILY #30 caps 03/30/24 amoxicillin 500 mg capsule 1,000 mg (2 x 500 mg) PO BID #40 04/21/24 caps hydroxyzine HCl 50 mg tablet 50 mg PO Q8H PRN anxiety #30 tabs 04/25/24 Allergies Allergy/AdvReac Type Severity Reaction Status Date / Time No Known Allergies Allergy Verified 04/21/24 09:09 [facility] Disclaimer: The information contained in this section may have been updated after the patient was seen, as this information can be updated by other users. Medical History Encounter for insertion of ParaGard IUD Paragard inserted 02/26/24 Chlamydia infection Anogenital HSV infection Acute blood loss anemia Depression affecting Carrier of spinal muscular atrophy Genital HSV PTSD (post-traumatic stress disorder) Anxiety Depression Surgical History History of rhinoplasty Family History Other Asthma FHx: mental illness Heart attack Hyperlipidemia Hypertension Social History Smoking Status: Never smoker alcohol intake: never substance use type: denies use current occupational status: employed Travel in the last 8 weeks: None number of children: 0 do you feel safe at home: Yes victim of physical abuse: No victim of emotional abuse: No victim of sexual abuse: No Have you lived/traveled outside US in past 30 days?: No Contact w/someone who lives/traveled outside US past 30 days?: No Exposure to someone with infectious disease in past 14 days?: No Do you have a fever (greater than 100.4 F or 38 C)?: No Have you tested positive for COVID-19: No Exposed to someone with COVID-19 in past 14 days?: No Do you have a sore throat?: No Do you have a cough?: No Do you have any weakness?: No Do you have any diarrhea?: No Are you experiencing any unusual bleeding?: No Do you have any muscle aches/pain?: No Do you have any abdominal pain?: No Are you experiencing loss of taste or smell?: No Other Medical History Have you received the Flu Vaccine for this season: No Have you received the Pneumonia Vaccine: No ROS Obtained: Yes All systems reviewed & no additional complaints except as documented Physical Exam General General appearance: alert and in no apparent distress Head Head exam: atraumatic and normocephalic Eye Eye exam: Present PERRL and EOMI ENT ENT exam: Present normal oropharynx Neck Neck exam: Present full ROM and trachea midline Chest Chest inspection: Present symmetric chest wall rise Respiratory Respiratory exam: Present normal lung sounds bilaterally; Absent stridor Cardiovascular Cardiovascular exam: Present regular rate and normal rhythm Abdominal Exam Abdominal exam: Present soft; Absent distention or tenderness Extremities Exam Extremities exam: Present full ROM Neurological Exam Neurological exam: Present alert and oriented X3 Psychiatric Psychiatric exam: Present normal mood Skin Skin exam: Present warm and dry Medical Decision Making Medical Records Screening: Per USPSTF and CDC recommendations, given the prevalence of disease in our region, it is our hospital?s policy to screen for HIV and viral Hepatitis for all patients aged 18 and over and those with ongoing risk factors. Ozzy Inquiry Pt receiving controlled substance: No Vital Signs: 04/25/24 18:06 04/25/24 19:13 Temperature 98.6 F 98.1 F Temperature Source Oral Pulse Rate 84 Pulse Rate [Radial] 112 H Respiratory Rate 20 21 Blood Pressure 116/78 Blood Pressure [R Arm] 128/89 Blood Pressure Mean [R Arm] 102 Blood Pressure Source [R Arm] Automatic Cuff Blood Pressure Position [R Arm] Sitting 02 Sat by Pulse Oximetry 100 99 Oxygen Delivery Method Room Air Room Air Lab Data Lab Results 04/25/24 18:14: WBC 6.7, RBC 4.49, Hgb 13.0, Hct 38.7, MCV 86.2, MCH 29.0, MCHC 33.6, RDW 12.5, Plt Count 263, MPV 9.8, Neut % (Auto) 64.9, Lymph % (Auto) 29.0, Bleckley % (Auto) 5.4, Eos % (Auto) 0.3, Baso % (Auto) 0.2, Neut # (Auto) 4.3, Lymph # (Auto) 1.9, Bleckley # (Auto) 0.4, Eos # (Auto) 0.0, Baso # (Auto) 0.0, D-Dimer 0.42, Sodium 139, Potassium 3.6, Chloride 102, Carbon Dioxide 24, Anion Gap 16.6 H, BUN 8, Creatinine 0.50 L, Estimated Creat Clear 154, Estimated GFR 157, Est GFR ( Amer) 190, Glucose 98, Calcium 10.1, Magnesium 1.7, Total Bilirubin 0.6, AST 39 H, ALT 28, Alkaline Phosphatase 72, Troponin I < 0.01, Total Protein 8.3 H, Albumin 5.6 H, Globulin 2.7, Albumin/Globulin Ratio 2.1 H, TSH 0.64, Free T4 1.27, Serum HCG, Qual Negative 04/25/24 18:14 04/25/24 18:14 Orders (Tests/Meds): ED MEDICATIONS Generic Name Dose Route Start Last Admin Trade Name Freq PRN Reason Stop Dose Admin Lactated Ringer's 1,000 mls @ 999 mls/hr 04/25/24 18:31 04/25/24 18:45 Lactated Ringer's 1000 Ml Bag IV 04/25/24 19:31 999 mls/hr .Q1H1M ONE Administration Sodium Chloride 10 ml 04/25/24 18:29 Sodium Chloride 0.9% 10ml Vial IV 05/25/24 18:28 NEEDED PRN to Dilute Lorazepam inj Discontinued Medications Generic Name Dose Route Start Last Admin Trade Name Freq PRN Reason Stop Dose Admin Lorazepam 0.5 mg 04/25/24 18:29 04/25/24 18:45 Lorazepam 2mg/Ml Vial IV 04/25/24 18:30 0.5 mg ONCE ONE Administration ORDERS Category Date Time Status XR chest portable Stat Exams 04/25/24 18:29 Taken CBC w/Auto Diff [Complete Blood Count Auto Diff] Stat Lab 04/25/24 18:14 Completed CMP [Comprehensive Metabolic Panel] Stat Lab 04/25/24 18:14 Completed D-Dimer Stat Lab 04/25/24 18:14 Completed Free T4 (Free Thyroxine) Stat Lab 04/25/24 18:14 Completed HCG Qualitative, Serum Stat Lab 04/25/24 18:14 Completed HIV Combo Stat Lab 04/25/24 18:14 Received Hepatitis C Ab Qual. W/ RFX Stat Lab 04/25/24 18:14 Received MAG [Magnesium] Stat Lab 04/25/24 18:14 Completed TSH [Thyroid Stimulating Hormone] Stat Lab 04/25/24 18:14 Completed Trop I [Troponin I] Stat Lab 04/25/24 18:14 Completed Troponin I Q3H Lab 04/25/24 21:30 Ordered Troponin I Q3H Lab 04/26/24 00:30 Ordered Medical Decision Narrative: In summary, this 18-year-old female presents to the emergency department today with anxiety, chest pain, shortness of breath, palpitations. On initial evaluation patient is afebrile, mildly tachycardic, otherwise stable. Differential diagnosis includes but is not limited to anxiety, panic attack, ACS, [place], PE, pneumothorax, pneumonia, hyperthyroidism. Based on these concerns, I ordered CBC CMP thyroid study magnesium, troponin, D-dimer. Denies any SI or HI today. ECG personally interpreted demonstrates sinus tachycardia with a rate of 119, incomplete right bundle branch block, no acute ischemic ST changes. Intervals are otherwise within normal limits.. Patient received Ativan, 1 L LR for treatment. Labs personally reviewed demonstrate no evidence of anemia no leukocytosis, D- dimer negative, considered cross-sectional imaging of the chest, but given negative D-dimer, was deferred given low risk Wells. No TIAGO, no significant electrolyte derangement, troponin negative, low suspicion for ACS therefore. Serum hCG negative.. TSH and free T4 within normal limits. XR personally interpreted demonstrates no acute intrathoracic process. On reassessment patient reports improvement in symptoms. Most consistent with panic, given negative workup otherwise. Will discharge with hydroxyzine and she has good follow-up with her PCP to obtain other outpatient therapies as indicated.. At this time it was felt that the patient was safe to be discharged home. The patient was in agreement with this plan. The patient was given strict return precautions prior to being discharged from the emergency department. Critical Care Critical Care Time Critical Care Time: No
--- NOTE | 2024-04-25 18:29 | XR_ITS ---
PROCEDURE INFORMATION: Exam: XR Chest Exam date and time: 04/25/2024 6:50 PM Age: 18 years old Clinical indication: Pain; Chest pressure; Additional info: Cp TECHNIQUE: Imaging protocol: Radiologic exam of the chest. Views: 1 view. COMPARISON: CR XR CHEST 2V 03/26/2021 7:07 PM FINDINGS: Lungs: No evidence of acute pulmonary disease or infiltrates Pleural spaces: No large effusion or pneumothorax. Heart/Mediastinum: Stable cardiac and mediastinal contours. Bones/joints: No evidence of acute osseous abnormalities within the visualized portions of the thoracic spine and ribs. Osseous structures appear appropriate for patient age. IMPRESSION: No dense parenchymal consolidation, pleural effusion, or pneumothorax.
[2024-04-25 18:35] LABS: Basophils % 0.2 % (0.1-2.0); Eosinophils % 0.3 % (0.1-12.0); Hematocrit 38.7 % (37.0-47.0); Lymphocytes # 1.9 K/mm3 (0.7-4.5); Mean Corpuscular HGB Conc 33.6 g/dL (31.8-35.4); Mean Corpuscular Volume 86.2 fl (81-99); Mean Platelet Volume 9.8 fl (7.4-10.4); Monocytes # 0.4 K/mm3 (0.1-1.0); Monocytes % 5.4 % (1.7-9.3); Neutrophils # 4.3 K/mm3 (1.8-7.8); Neutrophils % 64.9 % (37.0-80.0); Platelet Count 263 K/mm3 (142-424); Red Blood Count 4.49 M/mm3 (4.20-5.40); Red Cell Distribution Width 12.5 % (11.5-17.5); White Blood Count 6.7 K/mm3 (4.5-13.0)
[2024-04-25 18:43] LABS: Magnesium 1.7 mg/dl (1.6-2.3)
[2024-04-25 18:44] LABS: Alanine Aminotransferase 28 U/L (12-78); Albumin Level 5.6 g/dl (3.5-5.0); Albumin/Globulin Ratio 2.1 (1.1-1.8); Alkaline Phosphatase 72 U/L (38-126); Anion Gap 16.6 mEq/L (5-15); Aspartate Amino Transferase 39 U/L (14-36); Bilirubin,Total 0.6 mg/dl (0.2-1.3); Blood Urea Nitrogen 8 mg/dl (7-17); Calcium 10.1 mg/dl (8.4-10.2); Carbon Dioxide 24 mmol/L (22.0-30.0); Chloride 102 mmol/L (98-107); Creatinine Clearance Estimated 154 mL/min (50-200); Estimated Glomerular Filt Rate 157 ml/min (>60); GFR (African American) 190 ML/MIN (>60); Globulin 2.7 g/dL (1.3-3.2); Glucose 98 mg/dl (74-100); Potassium 3.6 mmoL/L (3.5-5.1); Sodium 139 mmol/L (136-145); Total Protein,Serum 8.3 g/dl (6.3-8.2)
[2024-04-25] MEDS: LACTATED RINGERS 1000ML 1,000 ML 999 ML IV (18:45)
[2024-04-25] MEDS: LORazepam 2MG/ML VIAL 0.5 MG IV (18:45)
[2024-04-25 18:46] LABS: HCG Qualitative, Serum Negative (Negative)
[2024-04-25 18:48] LABS: D-Dimer 0.42 ug/mL (0.0-0.5)
--- NOTE | 2024-04-25 18:52 | PC.NURSE ---
XR AT BEDSIDE
[2024-04-25 19:03] LABS: Troponin I < 0.01 ng/ml (0.00-0.034)
[2024-04-25 19:07] LABS: Free T4 (Free Thyroxine) 1.27 ng/dl (0.78-2.19)
[2024-04-25 19:13] VITALS: BP 116/78; PULSE 84; RESP 21; TEMP 36.7; O2SAT 99
[2024-04-25 19:16] LABS: Thyroid Stimulating Hormone 0.64 uIU/mL (0.465-4.68)
[2024-04-25 19:31] LABS: HIV Combo NEGATIVE (Negative)
[2024-04-25 19:32] VITALS: BP 129/89; PULSE 84; RESP 21; TEMP 36.7; O2SAT 99
[2024-04-25 19:39] LABS: Hepatitis C Ab Qual. W/ RFX NEGATIVE (Negative)
== END 2024-04-25 19:35 | disposition home or self-care (01) ==
PROVIDERS: Emergency Provider Emergency Medicine; PCP Internal Medicine
DX: F41.9 Anxiety disorder, unspecified (principal); R07.9 Chest pain, unspecified; R00.2 Palpitations; R06.02 Shortness of breath; R42 Dizziness and giddiness; R19.7 Diarrhea, unspecified
CPT/HCPCS: 71045; 80053; 83735; 84439; 84443; 84484; 84703; 85025; 85378; 86803; 87389; 93005; 96361; 96374; 99284; J2060; J7120

== ENCOUNTER 2024-06-16 11:30 | Outpatient (CLI) | payer BC, SELFPAY ==
[2024-06-16 17:29] LABS: Basophils % 0.2 % (0.1-2.0); Eosinophils % 0.5 % (0.1-12.0); Hematocrit 40.4 % (37.0-47.0); Hemoglobin 13.3 g/dL (12.2-16.2); Lymphocytes # 1.8 K/mm3 (0.7-4.5); Lymphocytes % 40.3 % (10-50); Mean Corpuscular HGB Conc 32.9 g/dL (31.8-35.4); Mean Corpuscular Hemoglobin 29.5 pg (27.0-31.2); Mean Corpuscular Volume 89.6 fl (81-99); Mean Platelet Volume 10.5 fl (7.4-10.4); Monocytes # 0.4 K/mm3 (0.1-1.0); Monocytes % 8.3 % (1.7-9.3); Neutrophils # 2.2 K/mm3 (1.8-7.8); Neutrophils % 50.7 % (37.0-80.0); Platelet Count 220 K/mm3 (142-424); Red Blood Count 4.51 M/mm3 (4.20-5.40); Red Cell Distribution Width 12.4 % (11.5-17.5); White Blood Count 4.3 K/mm3 (4.5-13.0)
[2024-06-16 18:21] LABS: Alanine Aminotransferase 21 U/L (12-78); Albumin Level 4.7 g/dl (3.5-5.0); Albumin/Globulin Ratio 1.6 (1.1-1.8); Alkaline Phosphatase 48 U/L (38-126); Amylase 49 U/L (30-110); Anion Gap 13.1 mEq/L (5-15); Aspartate Amino Transferase 28 U/L (14-36); Bilirubin,Total 0.8 mg/dl (0.2-1.3); Blood Urea Nitrogen 10 mg/dl (7-17); Calcium 9.7 mg/dl (8.4-10.2); Carbon Dioxide 29 mmol/L (22.0-30.0); Chloride 101 mmol/L (98-107); Estimated Glomerular Filt Rate 127 ml/min (>60); GFR (African American) 154 ML/MIN (>60); Globulin 2.9 g/dL (1.3-3.2); Glucose 73 mg/dl (74-100); Potassium 4.1 mmoL/L (3.5-5.1); Sodium 139 mmol/L (136-145); Total Protein,Serum 7.6 g/dl (6.3-8.2)
== END 2024-06-16 23:59 | disposition home or self-care (01) ==
LOC: LAB.DROPOF 06-17 13:27
PROVIDERS: PCP Internal Medicine; Visit Provider Internal Medicine
DX: R10.13 Epigastric pain (principal); K21.9 Gastro-esophageal reflux disease without esophagitis
CPT/HCPCS: 80053; 82150; 85025

== ENCOUNTER 2024-06-26 08:03 | Outpatient (CLI) | payer BC, SELFPAY ==
--- NOTE | 2024-06-26 08:00 | US_ITS ---
FINAL REPORT TECHNIQUE: Multiple transverse and longitudinal images CLINICAL HISTORY: Epigastric pain and nausea, radiates to back FINDINGS: The gallbladder shows no wall thickening, distention or stone disease. No biliary ductal dilatation is appreciated. No fluid collections are seen. Limited portions of the right liver are unremarkable. Limited portions of the right kidney are unremarkable. IMPRESSION: 1. No evidence of cholelithiasis 2. No evidence of biliary obstruction Reviewed, Interpreted and Dictated by Mack Sumner MD Transcribed by Essence Hackett Authenticated and [facility]
[2024-06-26] MEDS: BARIUM SULFATE(LIQUID E-Z-PAQUE);355ML BOTTLE 355 ML PO (08:31)
[2024-06-26] MEDS: BARIUM SULFATE (E-Z-HD 340GM);135ML BOTTLE 135 ML PO (08:31)
--- NOTE | 2024-06-26 09:00 | FL_ITS ---
FINAL REPORT CLINICAL HISTORY: GERD, acid reflux, abd pain DAP 897.47 1.59 min FINDINGS: UPPER GI EXAM HISTORY: GERD, acid reflux. Epigastric pain. PROCEDURE: The patient ingested barium. Effervescent crystals were also administered. Spot and overhead films were obtained. FINDINGS: The esophagus is normal. There is no hiatal hernia. There is no gastroesophageal reflux. Peristalsis is normal. The rugal fold pattern of the stomach is normal, however there are thickened folds involving the duodenum and proximal jejunum. Findings may represent enteritis. The duodenal bulb is normal. Fluoroscopy time: 1 minute 59 seconds Fluoro dose: 897.47 DAP in uGym2 IMPRESSION: Thickened small bowel folds may represent enteritis. Otherwise,, unremarkable exam. Films reviewed , interpreted and dictated by Dr. Sumner. Transcribed by Patel Alcala PA-C. Reviewed, Interpreted and Dictated by Mack Sumner MD Transcribed by MARTY Olea Authenticated and [facility]
== END 2024-06-26 23:59 | disposition home or self-care (01) ==
LOC: RAD 08:04
PROVIDERS: PCP Internal Medicine; Visit Provider Internal Medicine
DX: K21.9 Gastro-esophageal reflux disease without esophagitis (principal); R10.13 Epigastric pain
CPT/HCPCS: 74220; 74240; 76705

== ENCOUNTER 2024-08-28 13:32 | Outpatient (CLI) | payer BC, SELFPAY | END 2024-08-28 23:59 | disposition home or self-care (01) | LOC: LAB.DROPOF 23:01 | PROVIDERS: PCP Nurse Practitioner Family; Visit Provider Nurse Practitioner Family | DX: R30.0 Dysuria (principal) | CPT/HCPCS: 87086; 87088; 87186 ==

== ENCOUNTER 2024-12-29 10:50 | Outpatient (CLI) | payer BC, SELFPAY | END 2024-12-29 23:59 | disposition home or self-care (01) | LOC: LAB.DROPOF 12-30 14:09 | PROVIDERS: PCP Obstetrics & Gynecology; Visit Provider Obstetrics & Gynecology | DX: N89.8 Other specified noninflammatory disorders of vagina (principal) | CPT/HCPCS: 87491; 87529; 87591; 87661; 87798; 87801 ==

== ENCOUNTER 2025-01-10 13:49 | Emergency (ER) | payer BC, SELFPAY ==
[2025-01-10 14:06] VITALS: BP 120/90; PULSE 95; RESP 18; TEMP 36.8; O2SAT 99; BMI 25.7
--- NOTE | 2025-01-10 14:29 | ED_ITS ---
<Statement entered by Daniel Quintana MD - 01/10/25 19:41> I was consulted by the JODY, and we discussed the complexity of the problems being addressed. I approve the treatment and management plan for this patient's care in the emergency department, thus performing a substantive portion of the medical decision making. Daniel Quintana MD Discharge Plan Disposition Patient Disposition: Home, Self-Care Prescriptions Prescriptions: No Action fluconazole 150 mg tablet 150 mg PO Q3D Qty: 1 0RF Ubrelvy 100 mg tablet See Rx Instructions PO ONCE PRN (Reason: migraine headache) Qty: 10 5RF Rx Instructions: 1 tablet p.o. at start of migraine headache, may repeat in 2 hours if needed. fluticasone propionate [Allergy Relief (fluticasone)] 50 mcg/actuation spray ,suspension 2 spray intranasal DAILY Qty: 16 5RF Rx Instructions: administer into each nostril loratadine 10 mg tablet 10 mg PO DAILY Qty: 90 1RF pantoprazole 40 mg tablet,delayed release (DR/EC) 40 mg PO DAILY Qty: 90 1RF paroxetine HCl [Paxil] 20 mg tablet 30 mg PO DAILY Qty: 45 3RF Referrals Follow up/Referrals: Shan Cuevas MD [Primary Care Provider, Medical] - See instructions Activity Restrictions/Add. Instructions Additional Instructions/Restrictions: Today you were evaluated in the ED for anxiety. Please follow up with your PCP as scheduled. Call your OBGYN to schedule an evaluation. Please re-start your therapy JENNIFER. Return to the ED for worsening of condition. Clinical Impressions Clinical Impression: Anxiety Instructions Patient Instructions: Anxiety Disorders Print Language Print Language: Citizen Of [place] Discharge ED Provider: Daniel Quintana General Adult HPI General Chief complaint: Anxiety Stated complaint: soa, chest hurts, nausea Time Seen by Provider: 01/10/25 14:24 Mode of Arrival: Ambulatory Description of Symptoms (Recalled from ER Triage Doc. by RN): Pt presents for evaluation of anxiety that started earlier today. Pt states she was at home and started feel increased anxiety. Pt denies any increased stress, but does have a hx of anxiety. Pt states she had racing thoughts. Pt states takes paxil for her anxiety. History of Present Illness HPI narrative: patient is a pleasant 19 year old female PMHx anxiety, health anxiety, PTSD, migraines who presents to the ED with her father for anxiety. She states that she has panic attacks and had a panic attack [employer]. She states that she has a fear of having a seizure, has no personal history or family history of seizure. She states her therapist has told her it is her health anxiety that causes irrational fears. She has not been going to her weekly therapy apts. She denies SI / HI. She lives at home with her father and has a 1 year old daughter, has support at home. Related Data Previous Rx's ?Medication ?Instructions ?Recorded pantoprazole 40 mg tablet,delayed 40 mg PO DAILY #90 t abs 12/07/24 release paroxetine HCl 20 mg tablet (Paxil) 30 mg (1.5 x 20 mg ) PO DAILY #45 12/11/24 tabs fluticasone propionate 50 2 spray intranasal DAILY For nasal 12/23/24 mcg/actuation nasal allergies #16 grams spray,suspension (Allergy Relief (fluticasone)) loratadine 10 mg tablet 10 mg PO DAILY For allergies #90 12/23/24 tabs ubrogepant 100 mg tablet (Ubrelvy) See Rx Instructions PO ONCE PRN 12/23/24 migraine headache #10 tabs fluconazole 150 mg tablet 150 mg PO Q3D 2 doses #1 tab 12/29/24 Allergies Allergy/AdvReac Type Severity Reaction Status Date / Time No Known Allergies Allergy Verified 12/29/24 10:26 [facility] Disclaimer: The information contained in this section may have been updated after the patient was seen, as this information can be updated by other users. Medical History (Updated 01/10/25 @ 14:48 by Angelica Thompson APRN) Encounter for insertion of Kyleena IUD Contraceptive management Chlamydia infection Anogenital HSV infection Acute blood loss anemia Depression affecting Carrier of spinal muscular atrophy Genital HSV PTSD (post-traumatic stress disorder) Anxiety Depression Surgical History History of rhinoplasty Family History Other Asthma FHx: mental illness Heart attack Hyperlipidemia Hypertension Social History Smoking Status: Never smoker alcohol intake: never substance use type: denies use current occupational status: employed Travel in the last 8 weeks?: None number of children: 0 do you feel safe at home: Yes victim of physical abuse: No victim of emotional abuse: No victim of sexual abuse: No Have you lived/traveled outside [place] in past 30 days?: No Contact w/someone who lives/traveled outside [place] past 30 days?: No Exposure to someone with infectious disease in past 14 days?: No Do you have a fever (greater than 100.4 F or 38 C)?: No Have you tested positive for COVID-19?: No Exposed to someone with COVID-19 in past 14 days?: No Do you have a sore throat?: No Do you have a cough?: No Do you have any weakness?: No Do you have any diarrhea?: No Are you experiencing any unusual bleeding?: No Do you have any muscle aches/pain?: No Do you have any abdominal pain?: No Are you experiencing loss of taste or smell?: No Other Medical History Have you received the Flu Vaccine for this season: No Have you received the Pneumonia Vaccine: No ROS Obtained: Yes Systems reviewed as appropriate & no additional complaints except as documented Physical Exam General General appearance: alert Head Head exam: normocephalic Eye Eye exam: Present PERRL Neck Neck exam: Present full ROM Respiratory Respiratory exam: Present normal lung sounds bilaterally Cardiovascular Cardiovascular exam: Present regular rate Abdominal Exam Abdominal exam: Present soft Neurological Exam Neurological exam: Present alert, oriented X3 and normal gait Skin Skin exam: Present warm and dry Medical Decision Making Medical Records Screening: Per USPSTF and CDC recommendations, given the prevalence of disease in our region, it is our hospital?s policy to screen for HIV and viral Hepatitis for all patients aged 18 and over and those with ongoing risk factors. Ozzy Inquiry Pt receiving controlled substance: No Vital Signs: 01/10/25 14:06 01/10/25 14:54 Temperature 98.2 F 98.0 F Temperature Source Temporal Artery Scan Pulse Rate 92 H Pulse Rate [Right] 95 H Respiratory Rate 18 13 Blood Pressure 121/78 Blood Pressure [Right Arm] 120/90 Blood Pressure Mean [Right Arm] 100 02 Sat by Pulse Oximetry 99 Medical Decision Narrative: In summary, patient is a pleasant 19 year old female PMHx anxiety, health anxiety, PTSD, migraines who presents to the ED with her father for anxiety. She states that she has panic attacks and had a panic attack [employer]. She states that she has a fear of having a seizure, has no personal history or family history of seizure. She states her therapist has told her it is her health anxiety that causes irrational fears. She has not been going to her weekly therapy apts. She denies SI / HI. She lives at home with her father and has a 1 year old daughter, has support at home. Pt states she wants to be evaluated to see if she has a seizure disorder. She denies any seizure activity, denies post-ictal states, father states she has never experienced anything resembling a seizure. Pt admits to googling symptoms, admits she is concerned she may have a brain tumor because she has been diagnosed with migraines. She is interested in getting an EEG. Pt admits she understands she is probably not going to have a seizure but wants a medical professional to advise her that she is not having one. Pt advises she had her IUD removed because her symptoms worsen when shes on control. Her father states that he notices a change in her anxiety when she takes BC or has been on the IUD. She states that currently, she is not experiencing symptoms. Denies fever, chills, visual changes, neck pain, chest pain, soa, abd pain, n/v, dysuria. Upon initial evaluation, pt is A&O, hemodynamically stable. PE unremarkable. I discussed with patient that we can do labs and workup however no imaging is needed at this visit without any symptoms. Shared decision making used, patient declines lab work. We discussed that starting her therapy back may be helpful and following up with PCP and OBGYN for additional labs / concerns. She states that she just wanted to talk to a medical professional and feels safe to be discharged at this time. I advised her to return to ED for any worsening of condition. She was stable, A&O, ambulatory upon leaving the ED with father. Critical Care Critical Care Time Critical Care Time: No
[2025-01-10 14:54] VITALS: BP 121/78; PULSE 92; RESP 13; TEMP 36.7; O2SAT 99
== END 2025-01-10 14:55 | disposition home or self-care (01) ==
PROVIDERS: Emergency Provider Student in an Organized Health Care Education/Training Program; PCP Internal Medicine
DX: F41.1 Generalized anxiety disorder (principal); R07.9 Chest pain, unspecified; R06.02 Shortness of breath
CPT/HCPCS: 99282